=== PATIENT | male | born 2000 | race Caucasian/White ===

== ENCOUNTER 2022-03-05 21:59 | Emergency (ER) | payer MEDICAID ==
[~2022-03-05] VITALS: Ht 177.8 cm; Wt 104.3 kg
[2022-03-05 22:40] VITALS: BP_SYST 135
[2022-03-05] MEDS ORDERED: cefTRIAXone 1 GM in LIDOCAINE 1%, 20 ML MDV 2.1 ML IM ONE (23:45)
[2022-03-05] MEDS ORDERED: SULF1TAB48 PO (23:52)
--- NOTE | 2022-03-06 01:00 | NUR ---
PROVIDER IN TRIAGE TO EXAMINE PT. MOTHER WITH PT. NO S/S OF DISTRESS NOTED. AWAITING ORDERS. PT BACK TO LOBBY. WILL BE DC'D.
--- NOTE | 2022-03-06 01:26 | NUR ---
PT MEDICATED PER ORDERS GIVEN. PT WAS GIVEN DC INSTRUCTIONS BY DOCTOR. MOTHER PRESENT. PT DENIES ANY QUESTIONS AND WANTS TO LEAVE. SUGGESTED TO STAY 15 MINUTES, BUT WANTED TO GO HOME. PT AMBULATES TO EXIT WITH STEADY GAIT. NO S/S OF DISTRESS NOTED AT THIS TIME.
[2022-03-06 01:27] VITALS: BP_SYST 128
== END 2022-03-06 01:28 | disposition home or self-care (01) ==
LOC: SED 21:59
DX: L03.114 Cellulitis of left upper limb (principal)
CPT/HCPCS: 96372; 99283; J0696; J2001